=== PATIENT | female | born 1950 | race Hispanic/Latino ===

== ENCOUNTER → 2022-07-25 | Outpatient (CLI) | payer OTHER | END | disposition home or self-care (01) | LOC: OIH 13:30 | PROVIDERS: ATTEND Internal Medicine Cardiovascular Disease | DX: I48.0 Paroxysmal atrial fibrillation (principal) | CPT/HCPCS: 93306 ==

== ENCOUNTER → 2022-08-09 | Outpatient (CLI) | payer OTHER | END | disposition home or self-care (01) | LOC: RAH 12:45 → EDUNIT# 13:30 | PROVIDERS: ATTEND Internal Medicine Cardiovascular Disease | DX: Z13.6 Encounter for screening for cardiovascular disorders (principal); I51.5 Myocardial degeneration | CPT/HCPCS: 75571 ==

== ENCOUNTER → 2023-02-20 | Outpatient (CLI) | payer OTHER ==
[~2023-02-20] MED LIST: REGADENOSON 0.4 MG/5 ML PF SYG IVP ONE
== END | disposition home or self-care (01) ==
LOC: SHCH 09:05
PROVIDERS: ATTEND Internal Medicine Cardiovascular Disease
DX: R93.1 Abnormal findings on diagnostic imaging of heart and coronary circulation (principal); R06.02 Shortness of breath; R00.2 Palpitations; Z79.899 Other long term (current) drug therapy
CPT/HCPCS: 78452; 96374; 93017; J2785; A9500 ×2

== ENCOUNTER → 2025-02-02 | Outpatient (CLI) | payer OTHER ==
[~2025-02-02] VITALS: Ht 170.2 cm; Wt 83.0 kg
[~2025-02-02] MED LIST changes: +APIX5TAB PO; +CITA10TA89 PO; +LOSA50TA64 PO; +METF-444 PO; +METO-408 PO; -REGADENOSON 0.4 MG/5 ML PF SYG IVP ONE; +ROSU5TAB51 PO
[2025-02-02 08:48] VITALS: BP 132/65; PULSE 77; RESP 18; TEMP 97.9
[2025-02-02 08:49] LABS: BASOPHILS # (AUTO) 0.02 K/uL (0.00-0.20); BASOPHILS % (AUTO) 0.3 % (0.0-5.0); EOSINOPHILS # (AUTO) 0.03 K/uL (0.00-0.70); EOSINOPHILS % (AUTO) 0.5 % (0.0-8.0); HEMATOCRIT 38.6 % (36-48); IMMATURE GRANULOCYTE ABSOLUTE 0.01 K/uL (0-1); LYMPHOCYTES % (AUTO) 31.8 % (21.0-51.0); MEAN CORPUSCULAR HEMOGLOBIN 30.8 pg (27.0-33.0); MEAN CORPUSCULAR HGB CONC 33.4 g/dL (32.0-36.0); MEAN CORPUSCULAR VOLUME 92.1 fL (79-99); MONOCYTES # (AUTO) 0.3 K/uL (0.1-1.0); MONOCYTES % (AUTO) 5.2 % (3.0-13.0); NEUTROPHILS # (AUTO) 3.8 K/uL (1.8-7.7); PLATELET COUNT (AUTO) 228 K/uL (130-400); RED BLOOD CELL COUNT(AUTO) 4.19 MIL/uL (4.00-5.50); RED CELL DISTRIBUTION WIDTH 12.7 % (11.0-15.5); WHITE BLOOD COUNT (AUTO) 6.2 K/uL (4.8-10.8)
--- NOTE | 2025-02-02 09:55 | EKG ---
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
[2025-02-02 11:33] LABS: CREATININE 0.6 mg/dL (0.5-1.0); POTASSIUM 4.6 mmol/L (3.5-5.1)
--- NOTE | 2025-02-04 17:33 | NUR ---
RE: EKG REPORTED EKG RESULTS TO DR SINGH, NO NEW ORDERS RECEIVED.
== END | disposition home or self-care (01) ==
LOC: DAH 08:00 → EDSTATUS 02-06 13:00
PROVIDERS: ATTEND Surgery
DX: Z01.812 Encounter for preprocedural laboratory examination (principal); L72.3 Sebaceous cyst; I44.4 Left anterior fascicular block
CPT/HCPCS: 80048; 85025; 86850; 86900; 86901; 36415; 93005; A6260

== ENCOUNTER 2025-02-20 11:51 | Day surgery (SDC) | payer OTHER ==
[2025-02-16 09:00] VITALS: BP 126/65; PULSE 66; RESP 18; TEMP 98.6
--- NOTE | 2025-02-16 11:52 | EKG ---
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
[2025-02-20] VITALS (11 sets, daily range): BP systolic 107–141; BP diastolic 50–77; PULSE 64–75; RESP 12–19; TEMP 96.9–97.6
[~2025-02-20] VITALS: Ht 170.2 cm; Wt 84.1 kg
[2025-02-20] MEDS ORDERED: dexaMETHasone SOD PHOSPHATE 10MG/ML 1ML VIAL ONE (12:40)
[2025-02-20] MEDS ORDERED: LIDOCAINE PF 100MG/5ML (2%) SYRINGE 5ML ONE (12:40)
[2025-02-20] MEDS ORDERED: ondanSETRON 4MG INJ ONE (12:41)
[2025-02-20] MEDS ORDERED: proPOFol 10 MG/ML 20ML VIAL IV ONE (12:41)
[2025-02-20] MEDS ORDERED: SUCCINYLCHOLINE CHLORIDE 20 MG/ML 10 ML VIAL ONE (12:41)
[2025-02-20] MEDS ORDERED: GLYCOPYRROLATE 0.2 MG/ML 5 ML VIAL ONE (12:41)
[2025-02-20] MEDS ORDERED: NEOSTIGMINE METHYLSULFATE 1MG/ML IV ONE (12:41)
[2025-02-20] MEDS ORDERED: FENTanyl CITRate PF 50 MCG/1 ML 2ML VIAL ONE (12:42)
[2025-02-20] MEDS ORDERED: rocuRONium bROMide 10MG/1ML 5ML VL ONE (12:42)
[2025-02-20] MEDS ORDERED: MIDAZOLAM HCL 1 MG/ML 2ML VIAL ONE (12:43)
[2025-02-20] MEDS: ceFAZolin SODIUM 2 GM VIAL ONE (12:44)
[2025-02-20] MEDS: 0.9%NACL 1000ML 1,000 ML IV ONE (12:45)
[2025-02-20] MEDS ORDERED: BUPIvacaine HCL/EPINEPHrine/PF 0.25% 10ML VIAL IJ ONE ×2 (13:14→13:47)
[2025-02-20] MEDS: BUPIvacaine/PF 0.25% 10ML VIAL IJ ONE (13:29)
[2025-02-20] MEDS ORDERED: BACITRACIN 28.4 GM OINT TP ONE (14:01)
[2025-02-20] MEDS ORDERED: CEPH250C2 PO (14:43)
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
== END 2025-02-20 15:30 | disposition home or self-care (01) ==
LOC: DAH 11:51
PROVIDERS: ATTEND Surgery
DX: L72.0 Epidermal cyst (principal); I10 Essential (primary) hypertension; E78.5 Hyperlipidemia, unspecified; E11.9 Type 2 diabetes mellitus without complications; I48.91 Unspecified atrial fibrillation; Z90.710 Acquired absence of both cervix and uterus; Z90.49 Acquired absence of other specified parts of digestive tract; Z98.890 Other specified postprocedural states; Z79.84 Long term (current) use of oral hypoglycemic drugs; Z79.01 Long term (current) use of anticoagulants; Z79.899 Other long term (current) drug therapy
CPT/HCPCS: 93005; 11403; 11402; 86850; 86900; 86901; 82948 ×2; 36415; 88304; A6260; A4663; J7120; A4606; J3010; J1100; J0330; J7030; J3490 ×2; J2003; J2250; J2704; J2405; J2710; J0665; J0690; A4930; A4215; A4223; A4222; A4221